=== PATIENT | male | born 1960 | race Caucasian/White ===

== ENCOUNTER → 2021-07-09 | Day surgery (SDC) | payer BC ==
--- NOTE | 2021-07-07 10:49 | PCM.EKG ---
[facility] Test Date: 2021-07-07 Test Time: 10:47:12 Pat Name: BAO NELSON [facility]: [id number] Room: Gender: M Pv Design And Installation Technician: ARETHA : 1960 Requested By: NOAH DOE Order Number: [id number] Reading MD: Noah Doe Measurements Intervals [place] Rate: 93 P: 77 VT: 172 QRS: 46 QRSD: 142 T: 180 QT: 360 QTc: 448 Interpretive Statements Sinus rhythm Right atrial enlargement Left bundle branch block No previous ECG available for comparison poss p pulmonale Electronically Signed On 07-08-2021 10:58:57 CDT by Noah Doe Please click the below link to view image of tracing.
--- NOTE | 2021-07-07 14:10 | DIREP ---
PROCEDURE:CHEST 2 VIEWS COMPARISON:None. INDICATIONS:PRE-OP HEART CATH, ABNORMAL STRESS TEST FINDINGS: LUNGS/PLEURA:Mildly hyperinflated lung baeza. Patchy parahilar opacities and mild interstitial prominence. Right basilar linear scarring/atelectasis. No pleural effusion or pneumothorax. VASCULATURE:Unremarkable pulmonary vasculature. Calcified aortic arch. CARDIAC:Mild cardiomegaly. MEDIASTINUM:Normal. No visible mass or adenopathy. BONES:Degenerative change without evidence of acute osseus abnormality. OTHER:Negative. CONCLUSION: 1. Parahilar opacities and interstitial prominence with associated cardiomegaly. Could represent CHF/fluid overload. Dictated by: Gregorio Sherwood MD on 07/07/2021 at 02:05 PM
[2021-07-09] VITALS (11 sets, daily range): BP systolic 108–170; BP diastolic 55–108
[~2021-07-09] VITALS: Ht 167.6 cm; Wt 61.2 kg
[~2021-07-09] MED LIST: CARV6.25 PO; GARL1TAB2 PO; HEPARIN ONE; MULT-235 PO; NS 1000ML 1,000 ML IV SCH; NS 1000ML 1,000 ML ONE; PHENERGAN PO ONE; SUBLIMAZE ONE; VALIUM PO ONE; VERSED ONE; XYLOCAINE ONE
--- NOTE | 2021-07-09 11:58 | [facility] ---
DATE OF SERVICE: 07/09/2021 DICTATOR NAME: Xochitl Doe MD HEART CATHETERIZATION REPORT IDENTIFICATION: A 60-year-old male. PRECATHETERIZATION DIAGNOSES: Abnormal myocardial perfusion scan with multi-segmental hypoperfusion with left ventricular systolic dysfunction with 20% ejection fraction and left bundle-branch block with QRS duration of 142 milliseconds, congestive heart failure class 2, history of dizziness, near syncope at times, echo ejection fraction of around 20-25% with left ventricular dilatation and biatrial enlargement. Assess for significant coronary artery disease. POSTCATHETERIZATION DIAGNOSES: Left main is patent; type 3 left anterior descending appears to be fully patent; circumflex codominant vessel with good size obtuse marginal branch fully patent; right coronary artery is a nondominant vessel, fully patent; left ventricle is moderately dilated with a left ventricular end-diastolic pressure of 20-25 mm with no gradient across the aorta with severe global hypokinesis consistent with nonischemic dilated cardiomyopathy with underlying hypertension; hypertensive heart disease and left bundle-branch block with a QRS duration of 142 milliseconds, will require biventricular pacer ICD for left ventricular dyssynchrony. PREOPERATIVE MEDICATIONS: Phenergan 50 mg p.o., Valium 2.5 mg p.o., fentanyl 37.5 mcg IV, Versed 1 mg IV. ANTICOAGULATION: Heparin 2000 units intra-arterially, 2000 units in the flush solution, 1000 units in the dye solution. DYE USED: Isovue, total amount is 77 mL. CATHETERS: JL4 6-[place]izen [place], JR4 6-[place], 6-[place] angled pigtail catheter. ARTERIAL TIME: 8 minutes. FLUOROSCOPY TIME: 2.3 minutes. PROCEDURES: Left heart catheterization, bilateral selective coronary arteriography, left ventriculography by right femoral Roxi approach. CLOSURE DEVICE USED: Mynx closure device. NARRATION OF PROCEDURE: Under local anesthesia, right femoral artery was punctured percutaneously by arterial needle, guide wire passed in right femoral artery, 6-Citizen [place] Cordis sheath introduced, side port of the sheath used for femoral arterial pressure monitoring. Sheath anchored with suture. Left Roxi catheter introduced over guide wire into ascending aorta left coronary artery cannulated and left coronary angiography performed in WELSH and MILES projections with craniocaudal applications to visualize all branches. Left catheter exchanged for right coronary catheter and right coronary angiography performed in WELSH and MILES. This catheter exchanged for 6-Citizen [place] pigtail catheter and catheter crossed the aortic valve and left ventricular LVEDP measured and LV gram performed in 30 degrees MILES view with 30 mL Omnipaque dye and panning of descending aorta attempted. Patient tolerated procedure well. No complications of procedure. Angio-Seal deployed for hemostasis. LVEDP is 20-25 mm with LV pressure of 120/25. Femoral artery pressure 147/71 with a mean of 95. No gradient across the aorta. FINAL CONCLUSION: Normal coronary angiogram, nonischemic dilated cardiomyopathy with severe global hypokinesis, 20% ejection fraction, no mitral regurgitation, elevated LVEDP, left bundle-branch block, QRS duration 142 milliseconds. RECOMMENDATIONS: Optimization of medical therapy and biventricular pacer ICD. Dr. Todd was consulted. Xochitl Doe MD DR: MALCOLM TID: [id number] RECEIPT: [id number]
== END | disposition home or self-care (01) ==
LOC: CCL 06:39
PROVIDERS: ATTEND Specialist
DX: R94.39 Abnormal result of other cardiovascular function study (principal); Z20.822 Contact with and (suspected) exposure to COVID-19; I42.8 Other cardiomyopathies; I44.7 Left bundle-branch block, unspecified; I11.0 Hypertensive heart disease with heart failure; I50.32 Chronic diastolic (congestive) heart failure; J44.9 Chronic obstructive pulmonary disease, unspecified; F17.210 Nicotine dependence, cigarettes, uncomplicated; F32.9 Major depressive disorder, single episode, unspecified; F41.9 Anxiety disorder, unspecified; Z72.89 Other problems related to lifestyle; Z82.3 Family history of stroke; Z82.49 Family history of ischemic heart disease and other diseases of the circulatory system; Z80.9 Family history of malignant neoplasm, unspecified; Z88.0 Allergy status to penicillin
CPT/HCPCS: 36415; 71046; 85610; 85730; 87426; 93005; 93458; 99152; 99153; C1760; C1894 ×3; J1644 ×2; J2250; J3010; J7030; Q9967; C1769